=== PATIENT | female | born 1970 | race Caucasian/White ===

== ENCOUNTER 2016-11-04 00:17 | Inpatient (IN) | payer OTHER ==
[~2016-11-04 00:17] MED LIST: NARCAN INJ ONE
[2016-11-04] MEDS ORDERED: NARCAN INJ IVP ONE (00:25)
--- NOTE | 2016-11-04 00:29 | DR.SA ---
HPI - Time Seen Time seen: 00:02 - Complaint / Symptoms Chief Complaint Doctors Comments: EMS reports patient called daughter saying she was going to kill herself. Daughter found patient on floor semiresponsive. EMS arrived started IV and oxygen and transported her to ER. On arrival vital signs were good but very lethargic. - Source History Provided: EMS - Mode of Arrival Mode of Arrival: Stretcher - Timing Came on: Gradually - Duration Duration: Constant Duration: Minutes - Severity Severity: Unable, To Care For Self - Context Came by: 911 Call Attempt: Other (drugs) Expresses: Suicidal Ideation History of: Depression - Associated Signs and Symptoms Associated Signs and Symptoms: Depression PMH - PMH Past Medical History: Dyslipidemia Past Surgical History: No - Family History Family Medical History: Diabetes Mellitus, Cancer, [place], Coronary Artery Disease, Hypertension - Social History Do you use any recreational Drugs:: No PE - Vital Signs Vitals: Temperature 97.8 F Pulse Rate 82 Respiratory Rate 14 Blood Pressure 142/77 O2 Sat by Pulse Oximetry 100 Course - Treatment Treatment: 0030: narcan given and patient more alert but still lethargic. due to stable vital signs will not give Romazicon unless decompensates. - Consultation Called: 01:16 Call Returned: 01:16 Consultation Comments: case discussed with DR. Osborne admit for supportive care and suicde precautions. ROR - Labs Reviewed Result Diagrams: 11/04/16 00:45 11/04/16 00:45 Laboratory: WBC 11.5 X10^3/uL (3.6-10.0) H 11/04/16 00:45 RBC 4.73 X10^6/uL (3.5-5.4) 11/04/16 00:45 Hgb 14.3 g/dL (12.0-16.0) 11/04/16 00:45 Hct 42.5 % (36.0-47.0) 11/04/16 00:45 MCV 89.8 fL (80.0-100.0) 11/04/16 00:45 MCH 30.3 pg (27.0-34.0) 11/04/16 00:45 MCHC 33.7 g/dL (33.0-35.0) 11/04/16 00:45 RDW 14.4 % (11.6-16.5) 11/04/16 00:45 Plt Count 280 X10^3/uL (150.0-450.0) 11/04/16 00:45 MPV 7.9 fL (7.4-11.0) 11/04/16 00:45 Neut % 56.2 % (42.0-75.0) 11/04/16 00:45 Lymph % 35.1 % (21.0-51.0) 11/04/16 00:45 [place] % 5.6 % (0.0-13.0) 11/04/16 00:45 Eos % 2.3 % (0.9-2.9) 11/04/16 00:45 Baso % 0.8 % (0.2-1.0) 11/04/16 00:45 Neut # 6.5 x10^3/uL (2.2-4.8) H 11/04/16 00:45 Lymph # 4.0 X10^3/uL (1.3-2.9) H 11/04/16 00:45 [place] # 0.6 x10^3/uL (0.3-0.8) 11/04/16 00:45 Eos # 0.3 x10^3/uL (0.0-0.2) H 11/04/16 00:45 Baso # 0.1 X10^3/uL (0.0-0.1) 11/04/16 00:45 Absolute Nucleated RBC 0.0 /100WBC 11/04/16 00:45 Sample Site Lbra 11/04/16 00:28 ABG pH 7.350 (7.35-7.45) 11/04/16 00:28 ABG pCO2 45.0 mmHg (35.0-45.0) 11/04/16 00:28 ABG pO2 256.0 mmHg (80.0-100.0) H 11/04/16 00:28 ABG HCO3 24.8 mmol/L (22-26) 11/04/16 00:28 ABG O2 Saturation 100.0 % (90-100) 11/04/16 00:28 ABG Base Excess -1.1 mmol/L (-2.0-2.0) 11/04/16 00:28 Hermann Test Na 11/04/16 00:28 A-a Gradient 401.0 mmHg 11/04/16 00:28 FiO2 100.000 05 00:28 Blood Gas Comments Ander abg well-mtf 11/04/16 00:28 Sodium 143 mmol/L (136-145) 05 00:45 Corrected Sodium TNP 11/04/16 00:45 Potassium 3.9 mmol/L (3.5-5.1) 11/04/16 00:45 Chloride 107 mmol/L (98-107) 11/04/16 00:45 Carbon Dioxide 27.6 mmol/L (21-32) 11/04/16 00:45 BUN 2 mg/dL (7-18) L 11/04/16 00:45 Creatinine 0.82 mg/dL (0.55-1.02) 11/04/16 00:45 Est GFR (MDRD) Af Amer > 60 (>60) 11/04/16 00:45 Est GFR (MDRD) Non-Af > 60 (>60) 11/04/16 00:45 Glucose 100 mg/dL (65-99) H 11/04/16 00:45 Calcium 8.2 mg/dL (8.5-10.1) L 11/04/16 00:45 Corrected Calcium TNP 11/04/16 00:45 Total Bilirubin 0.20 mg/dL (0.2-1.0) 11/04/16 00:45 AST 20 Units/L (15-37) 11/04/16 00:45 ALT 26 Units/L (12-78) 11/04/16 00:45 Alkaline Phosphatase 69 Units/L (46-116) 11/04/16 00:45 Total Protein 7.3 g/dL (6.4-8.2) 11/04/16 00:45 Albumin 3.4 g/dL (3.4-5.0) 11/04/16 00:45 Globulin 3.9 g/dL (2.5-4.5) 11/04/16 00:45 Albumin/Globulin Ratio 0.9 Ratio (1.1-2.1) L 11/04/16 00:45 Urine Opiates Screen Negative (NEG=<300) 11/04/16 00:32 Urine Methadone Screen Negative (NEG=<300) 11/04/16 00:32 Ur Barbiturates Screen Negative (NEG=<200) 11/04/16 00:32 Ur Phencyclidine Scrn Negative (NEG=<25) 11/04/16 00:32 Ur Amphetamines Screen Negative (NEG=<1000) 11/04/16 00:32 U Benzodiazepines Scrn Positive (NEG=<200) A 11/04/16 00:32 Urine Cocaine Screen Negative (NEG=<300) 11/04/16 00:32 U Marijuana (THC) Screen Negative (NEG=<50) 11/04/16 00:32 Ethyl Alcohol mg/dL 270 mg/dL (0-19.9) H 11/04/16 00:45 - EKG Rate: 80 [place]: Normal Rhythm: NSR Block: None Hypertrophy: None ST: Normal - Diagnosis Discharge Problem: Suicide and self-inflicted poisoning by drugs and medicinal substances Drug overdose, intentional Qualifiers: Encounter type: initial encounter Qualified Code(s): T50.902A - Poisoning by unspecified drugs, medicaments and biological substances, intentional self-harm , initial encounter - Discharge Plan Condition: Stable - Follow ups/Referrals Follow ups/Referrals: MADELYN SMITH [Primary Care Provider] - 3 days - Instructions
[2016-11-04 00:31] VITALS: BMI 27.4
[2016-11-04 00:33] LABS: ABG BASE EXCESS -1.1 mmol/L (-2.0-2.0); ABG HCO3 24.8 mmol/L (22-26)
[2016-11-04] MEDS ORDERED: NS 500 ML IV 1,000 ML IV ONE (00:41)
[2016-11-04 01:01] LABS: BASOPHILS # (AUTO) 0.1 X10^3/uL (0.0-0.1); BASOPHILS % (AUTO) 0.8 % (0.2-1.0); EOSINOPHILS # (AUTO) 0.3 x10^3/uL (0.0-0.2); EOSINOPHILS % (AUTO) 2.3 % (0.9-2.9); HEMATOCRIT 42.5 % (36.0-47.0); HEMOGLOBIN 14.3 g/dL (12.0-16.0); LYMPHOCYTES % (AUTO) 35.1 % (21.0-51.0); MEAN CORPUSCULAR HEMOGLOBIN 30.3 pg (27.0-34.0); MEAN CORPUSCULAR HGB CONC 33.7 g/dL (33.0-35.0); MEAN CORPUSCULAR VOLUME 89.8 fL (80.0-100.0); MEAN PLATELET VOLUME 7.9 fL (7.4-11.0); MONOCYTES # (AUTO) 0.6 x10^3/uL (0.3-0.8); MONOCYTES % (AUTO) 5.6 % (0.0-13.0); NEUTROPHILS # (AUTO) 6.5 x10^3/uL (2.2-4.8); NEUTROPHILS % (AUTO) 56.2 % (42.0-75.0); PLATELET COUNT 280 X10^3/uL (150.0-450.0); RED BLOOD COUNT 4.73 X10^6/uL (3.5-5.4); RED CELL DISTRIBUTION WIDTH 14.4 % (11.6-16.5); WHITE BLOOD COUNT 11.5 X10^3/uL (3.6-10.0)
[2016-11-04 01:11] LABS: ALANINE AMINOTRANSFERASE 26 Units/L (12-78); ALBUMIN 3.4 g/dL (3.4-5.0); ALKALINE PHOSPHATASE 69 Units/L (46-116); ASPARTATE AMINO TRANSFERASE 20 Units/L (15-37); BLOOD ALCOHOL 270 mg/dL (0-19.9); BLOOD UREA NITROGEN 2 mg/dL (7-18); CALCIUM 8.2 mg/dL (8.5-10.1); CARBON DIOXIDE 27.6 mmol/L (21-32); CHLORIDE 107 mmol/L (98-107); CREATININE 0.82 mg/dL (0.55-1.02); GLUCOSE 100 mg/dL (65-99); SODIUM 143 mmol/L (136-145); TOTAL PROTEIN 7.3 g/dL (6.4-8.2); eGFR BLACK RACES > 60 (>60); eGFR NON BLACK RACES > 60 (>60)
[2016-11-04] MEDS ORDERED: NS 1000 ML 1,000 ML ONE (01:12)
[2016-11-04 01:16] LABS: BILIRUBIN,URINE NEGATIVE (NEGATIVE); BLOOD/HEMOGLOBIN,URINE 2+ (NEGATIVE); GLUCOSE, URINE NEGATIVE (NEGATIVE); KETONES,URINE NEGATIVE (NEGATIVE); LEUKOCYTE ESTERASE ,URINE NEGATIVE (NEGATIVE); NITRITES,URINE NEGATIVE (NEGATIVE); PROTEIN,URINE NEGATIVE (NEGATIVE); UROBILINOGEN,URINE NORMAL (NORMAL)
[2016-11-04 01:20] LABS: SALICYLATE 5.3 mg/dL (2.8-20)
[2016-11-04] MEDS ORDERED: ROMAZICON INJ 0.5 MG IVP PRN (01:25)
[2016-11-04 01:31] LABS: APPEARANCE,URINE CLEAR (CLEAR); BACTERIA,URINE NEGATIVE /HPF (NEGATIVE); COLOR,URINE YELLOW (YELLOW); RBC,URINE 0-3 /HPF (NEGATIVE); SQUAMOUS EPITHELIAL CELL,UR RARE /HPF (NEGATIVE)
[2016-11-04] MEDS: NS 1000 ML 1,000 ML IV SCH ×2 (02:44→10:43)
--- NOTE | 2016-11-04 12:02 | RAD ---
HISTORY: Follow up rib fracture Study: Right ribs Comparison: October 04, 2016 Findings: Once again noted is a fracture of the right lateral 8th rib. It is unchanged in appearance from the prior examination. No obvious healing is present. There is also a fracture of the right 9th rib whic h was not visible on the prior examination. Clinical correlation as to interval trauma is recommende d. No pneumothorax is identified. The lung oliva are clear. The heart size is normal. IMPRESSION: No change right lateral 8th rib fracture Fracture right lateral 9th rib which was not visible on the prior examination and could be more rece nt. Historical correlation is recommended. Reported By:
[2016-11-04] MEDS ORDERED: PROTONIX TAB 40 MG PO SCH (14:00)
--- NOTE | 2016-11-04 14:37 | DR.H&P ---
H&P - History & Physical for Day of: H&P Date: 11/04/16 - Chief Complaint Chief Complaint: SUICIDE ATTEMPT - Allergies Allergies/Adverse Reactions: Allergies Allergy/AdvReac Type Severity Reaction Status Date / Time No Known Drug Allergy Allergy Verified 10/04/16 16:48 - History of Present Illness History of Present Illness: THIS IS A 45 YEAR OLD FEMALE, WHO IS A PATIENT OF DR. MADELYN SMITH. SHE PRESENTS TO THE EMERGENCY ROOM, VIA EMS, WITH REPORTS OF AN OVERDOSE WITH SUICIDDE ATTEMPT. DAUGHTER REPROTS PATIENT CALLED HER AND STATED SHE WAS GOING TO KILL HERSELF. DAUGHTER FOUND PATIENT ON THE FLOOR SEMIRESPONSIVE. ON ARRIVAL TO ER, VITAL SIGNS STABLE AND PATIENT WAS LETHARGIC. NARCAN WAS ADMINISTERED AND PATIENT BECAME MORE ALERT. SHE STATED SHE HAD TAKEN TWENTY XANAX 1MG TABLETS. PATIENT REPORTED SHE WAS TIRED OF HER JOB AND TIRED OF HER DAUGHTER. PATIENT STATED SHE COULDN'T DEAL WITH ANY OF IT ANYMORE. PATIENT HAD REPORTED PAIN TO RIGHT RIB AREA AND STATED SHE HAD A FRACTURED RIB. LABS AND XRAY WERE OBTAINED. CBC WNL EXCEPT: WBC 11.5. CMP WNL EXCEPT: GLUCOSE 100, CALCIUM 8.2. ABG ABNORMALS: PO2 256.0, FIO2 100.0. URINALYSIS WNL. TOXICOLOGY POSITIVE FOR BENZODIAZEPINES. ETHYL ALCOHOL 270. SALICYLATES 5.3. EKG: SINUS RHYTHM, RATE 84. XRAY OF RIBS REPORT: NO CHANGE RIGHT LATERAL 8TH RIB FRACTURE; FRACUTRE RIGHT LATERAL 9TH RIB WHICH WAS NOT VISIBLE ON PRIOR EXAM. PATIENT RECEIVE A NORMAL SALINE BOLUS WHILE IN ER. 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 UPON ROUNDS, VITAL SIGNS ARE STABLE AND PATIENT IS ALERT, DROWSY AND COHERENT. PLANS ARE TO CONTACT MENTAL HEALTH FOR EVALUATION AND TRANSFER. PATIENT IS MEDICALLY CLEAR FOR TRANSFER. - Past Medical History Past Medical History: Anxiety, Dyslipidemia, GERD, Hypertension Additional Medical History: Urinary Tract Infections - Past Surgical History Surgical History: No History - Family History Family Medical History: Diabetes Mellitus, Cancer, [place], Coronary Artery Disease, Hypertension - Social History Does patient currently use any type of tobacco product: Yes Have you used tobacco products in the last 12 months: Yes Type of Tobacco Use: Cigarettes Packs per day or dips/chews per day: 1/2 Alcohol Use: Heavy Drug Use: Prescription Drugs - Medications Home Medications: Alprazolam [Xanax 1 mg] 1 tab PO BID 11/04/16 [History Confirmed 11/04/16] Ibuprofen [MOTRIN TAB 600 MG *] 1 tab PO TID PRN 11/04/16 [History Confirmed ] Oxycodone W/ Acetaminophen [Percocet 10-325 mg] 1 tab PO Q6H 11/04/16 [History Confirmed 11/04/16] Pantoprazole Sodium 40 mg [PROTONIX 40 MG *] 1 tab PO DAILY 11/04/16 [History Confirmed 11/04/16] Trazodone HCl 1 tab PO HS 11/04/16 [History Confirmed 11/04/16] - Review of Systems Constitutional: Weakness, Malaise Eyes: No Symptoms Reported. denies: Pain, Vision Change, Conjunctivae Inflammation, Eyelid Inflammation, Redness ENT: No Symptoms Reported. denies: Ear Pain, Ear Discharge, Nose Pain, Nose Discharge, Nose Congestion, Mouth Pain, Mouth Swelling, Throat Pain, Throat Swelling Respiratory: No Symptoms Reported. denies: Cough, Shortness of Breath, Hemoptysis, SOB with Excertion, Sputum, Wheezing Cardiovascular: No Symptoms Reported. denies: Chest Pain, Palpitations, Orthopnea, Paroxysmal Noc. Dyspnea, Edema, Light Headedness Gastrointestinal: No Symptoms Reported. denies: Nausea, Vomiting, Abdominal Pain, Constipation, Hematochezia Genitourinary: No Symptoms Reported. denies: Dysuria, Frequency, Incontinence, Hematuria, Retention Musculoskeletal: Other (Right rib pain). denies: Shoulder Pain, Arm Pain, Back Pain, Hand Pain Skin: No Symptoms Reported. denies: Rash, Lesions, Jaundice, Bruising, Wound, Ecchymosis Neurological: Other (Lethargy). denies: Weakness, Numbness, Incoordination, Change in Speech - Physical Exam Vital Signs: Temperature 99 F Pulse Rate [Apical] 90 Respiratory Rate 20 Blood Pressure [Left Arm] 100/47 Blood Pressure [Right Arm] 93/44 O2 Sat by Pulse Oximetry 98 Oriented: Person, Place Eyes: Normal. negative: Blurred Vision, Diplopia, Discharge, Pain, Redness, Photophobia Ear: Normal. negative: Swelling, Ecchymosis, Hemotypanum, Abrasion, Laceration Nose: Normal. negative: Injected, Discharge, Blood Throat: Dry. negative: Tonsillar Hypertrophy, Red, Exudate Respiratory: Clear Throughout Cardiovascular: Normal. negative: Murmur, Edema : Normal. negative: Dysuria, Hematuria, Frequency, Discharge, Bleeding, Auscultation: Bowel Sounds: Normal. negative: Bruit Palpation: Normal. negative: Spleen Enlarged, Liver Enlarged, Mass Pulsatile Tenderness: Normal. negative: Rebound, Guarding, Rigidity Skin: Normal. negative: Diaphoresis, Wound, Bruising, Ecchymosis Musculoskeletal: Instability Psychiatric: Other (Lethargy) Mood Description: Calm Speech Pattern: Clear, Appropriate - Assessment/Plan (1) Drug overdose, intentional Qualifiers: Encounter type: initial encounter Qualified Code(s): T50.902A - Poisoning by unspecified drugs, medicaments and biological substances, intentional self- harm, initial encounter Status: Acute Plan: ADMIT PATIENT, START IV FLUIDS, ROMAZICON PRN, CONTACT MENTAL HEALTH FOR EVALUATION AND TRANSFER, MONITOR. PATIENT IS MEDICALLY CLEAR FOR TRANSFER TO MENTAL FACILITY. (2) Suicide and self-inflicted poisoning by drugs and medicinal substances Qualifiers: Encounter type: E Status: Acute Plan: ABOVE. (3) Right rib fracture Qualifiers: Encounter type: initial encounter Rib fracture type: single rib Fracture type: closed Fracture healing: F Qualified Code(s): S22.31XA - Fracture of one rib, right side, initial encounter for closed fracture Status: Acute Plan: MONITOR. (4) Anxiety Status: Chronic (5) Hypertension Qualifiers: Hypertension type: essential hypertension Qualified Code(s): I10 - Essential (primary) hypertension Status: Chronic (6) GERD (gastroesophageal reflux disease) Qualifiers: Esophagitis presence: esophagitis presence not specified Qualified Code(s) : K21.9 - Gastro-esophageal reflux disease without esophagitis Status: Chronic
[2016-11-04 18:42] VITALS: BP 126/49
== END 2016-11-04 18:15 | DRG 918 ==
LOC: ER 00:17 → ICU 01:20
PROVIDERS: ADMIT Internal Medicine; ATTEND Internal Medicine
DX: T42 Poisoning by, adverse effect of and underdosing of antiepileptic, sedative- hypnotic and antiparkinsonism drugs (principal); F41.8 Other specified anxiety disorders; E78.2 Mixed hyperlipidemia; K21.9 Gastro-esophageal reflux disease without esophagitis; I10 Essential (primary) hypertension; F10.10 Alcohol abuse, uncomplicated; Y90.8 Blood alcohol level of 240 mg/100 ml or more; S22.41XA Multiple fractures of ribs, right side, initial encounter for closed fracture; W18.39XA Other fall on same level, initial encounter
CPT/HCPCS: 36415; 36600; 51702; 71111; 80053; 80307; 80320; 81001; 82803; 85025; 93005; 93010; 96365; 96367; 96374; 99284; 99285; A4216; A4222; G0434; G6038; G6039; G6040; J2310